=== PATIENT | female | born 1965 | race Hispanic/Latino ===

== ENCOUNTER 2025-01-09 09:13 | Inpatient (IN) | payer OTHER ==
[~2025-01-09] VITALS: Ht 170.2 cm; Wt 91.5 kg
[2025-01-09 09:47] LABS: BASOPHILS # (AUTO) 0.03 K/uL (0.00-0.20); BASOPHILS % (AUTO) 0.3 % (0.0-5.0); HEMATOCRIT 38.3 % (36-48); IMMATURE GRANULOCYTE ABSOLUTE 0.09 K/uL (0-1); LYMPHOCYTES # (AUTO) 0.8 K/uL (1.0-4.8); MEAN CORPUSCULAR HEMOGLOBIN 29.4 pg (27.0-33.0); MEAN CORPUSCULAR HGB CONC 33.4 g/dL (32.0-36.0); MONOCYTES # (AUTO) 0.6 K/uL (0.1-1.0); NEUTROPHILS # (AUTO) 7.7 K/uL (1.8-7.7); NEUTROPHILS % (AUTO) 83.7 % (40.0-77.0); PLATELET COUNT (AUTO) 296 K/uL (130-400); RED BLOOD CELL COUNT(AUTO) 4.35 MIL/uL (4.00-5.50); WHITE BLOOD COUNT (AUTO) 9.1 K/uL (4.8-10.8)
[2025-01-09 10:00] VITALS: PULSE 107; RESP 20
[2025-01-09 10:05] LABS: POTASSIUM 3.7 mmol/L (3.5-5.1)
[2025-01-09 10:08] LABS: ABG HCO3 17.2 mmol/L (21.0-28.0); ABG OXYGEN SATURATION 93.8 % (94.0-98.0); ABG PCO2 21 mmHg (32-45); PO2, ARTERIAL BG 59.1 mmHg (83.0-108.0); VENT MODE, BG RA (ROOM AIR)
[2025-01-09 10:10] LABS: COVID19 (SARS ANTIGEN RAPID) PRESUMPTIVE NEGATIVE (NEGATIVE); INFLUENZA TYPE A Negative For Type A (NEGATIVE); INFLUENZA TYPE B Negative For Type B (NEGATIVE)
[2025-01-09 10:16] LABS: B-TYPE NATRIURETIC PEPTIDE 40 pg/mL (0-100)
[2025-01-09] MEDS: IpraTROPium/alBUTERol SULFATE 3 ML SOLUTION IH ONE (10:36)
--- NOTE | 2025-01-09 10:56 | ERN ---
General Chief Complaint: Flu Symptoms Stated Complaint: FLU LIKE SYMPTOMS Time Seen by MD: 09:14 History of Present Illness Initial Comments 59-year-old female brought in by EMS from her work for dyspnea. Patient reports he was had cough and congestion over the last few days. She went to her PCP was diagnosed with a pneumonia. She has been taking amoxicillin, prednisone, and an inhaler. She reports that today she feels like she can not breathe. She was tachycardic with a heart rate in the 110's. Her oxygen saturation he was 91% on room air per EMS, currently on 2 L nasal cannula. Allergies: Coded Allergies: No Known Drug Allergies (Unverified Allergy, Unknown, 01/09/25) Past Medical History Past Medical History: Diabetes-Type II, HIV, Hypertension Past Surgical History: Appendectomy ROS Dictation CONSTITUTIONAL: fatigue HEAD/FACE: No signs of trauma. EENT: No eye pain, no blurred vision, no tearing, no double vision, no ear pain, no ear discharge, no nose pain, no nasal congestion, no throat pain, no throat swelling, no mouth pain. RESPIRATORY: dyspnea & cough CARDIOVASCULAR: No chest pain, no edema, no palpitations, no syncope. GASTROINTESTINAL/ABDOMINAL: No abdominal pain, no constipation, no diarrhea, no nausea, no vomiting. GENITOURINARY: No abnormal discharge, no dysuria, no frequent urination, no hematuria. No complaints of pain in the genitals. MUSCULOSKELETAL: No back pain, no gout, no joint pain, no joint swelling, no muscle pain, no muscle stiffness, no neck pain. INTEGUMENTARY: No change in color, no change in hair/nails, no dryness, no lesion, no lumps, no rash. NEUROLOGICAL/PSYCH: No anxiety, not depressed, no emotional problem, no heada alma, no numbness, no pre-existing deficit, no history of seizures, no tremors, no weakness. HEMATOLOGIC/LYMPHATIC: Not anemic, no history of blood clots, no apparent bleeding, no bruising, glands not swollen. All Systems Negative, Except as Noted. Physical Exam Physical Exam Dictation VITAL SIGNS: Reviewed. GENERAL APPEARANCE: Alert, oriented x3, moderate resp distress HEAD AND FACE: Non-traumatic. EYES: PERRL, pink conjunctivas, eyelid no trauma, anterior chamber clear. EARS: Pinnas intact and no signs of trauma or erythema. Ear canals clear and no discharge. TMs no erythema. NOSE: No discharge, no bleeding. OROPHARYNX: Mouth normal, teeth no caries, tongue pink. Pharynx clear, no erythema. Tonsils no exudates, no abscesses noted. Mucous membrane moist. NECK: Supple, non-tender, no thyromegaly, no masses, no JVD, no bruits. BREAST: Deferred. CHEST: No tenderness, no crepitus, no paradoxical movement, no retractions. LUNGS: Clear, well-ventilated, symmetric, no rales, no wheezing, no rhonchi, no stridor, good breath sounds bilaterally. HEART: Regular rate, regular rhythm, no murmur, no gallops. VASCULAR: No peripheral edema. ABDOMEN: Soft, positive bowel sounds, nondistended, no guarding, nontender, no rebound, no masses no hepatomegaly, no splenomegaly, no Meng's sign, no hernias. RECTAL: Deferred. GENITAL: Deferred. NEUROLOGICAL: Normal speech, gross motor function intact, gross sensory function intact. MUSCULOSKELETAL: Neck nontender, full range of motion, back nontender, full range of motion. EXTREMITIES: Nontender, full range of motion. SKIN: Color pink, dry, no turgor, no rash, no lacerations, no abrasions, no contusions. LYMPHATICS: Deferred. Results Laboratory and Microbiology Lab and Micro Result Laboratory Tests Test 01/09/25 09:31 01/09/25 10:07 01/09/25 12:59 White Blood Count 9.1 K/uL (4.8-10.8) Red Blood Count 4.35 MIL/uL (4.00-5.50) Hemoglobin 12.8 g/dL (12.0-16.0) Hematocrit 38.3 % (36-48) Mean Corpuscular Volume 88.0 fL (79-99) Mean Corpuscular Hemoglobin 29.4 pg (27.0-33.0) Mean Corpuscular Hemoglobin Concent 33.4 g/dL (32.0-36.0) Red Cell Distribution Width 13.0 % (11.0-15.5) Platelet Count 296 K/uL (130-400) Mean Platelet Volume 10.6 fL (7.5-10.5) H Immature Granulocyte % (Auto) 1.0 % (0-1) Neutrophils (%) (Auto) 83.7 % (40.0-77.0) H Lymphocytes (%) (Auto) 9.0 % (21.0-51.0) L Monocytes (%) (Auto) 6.0 % (3.0-13.0) Eosinophils (%) (Auto) 0.0 % (0.0-8.0) Basophils (%) (Auto) 0.3 % (0.0-5.0) Neutrophils # (Auto) 7.7 K/uL (1.8-7.7) Lymphocytes # (Auto) 0.8 K/uL (1.0-4.8) L Monocytes # (Auto) 0.6 K/uL (0.1-1.0) Eosinophils # (Auto) 0.00 K/uL (0.00-0.70) Basophils # (Auto) 0.03 K/uL (0.00-0.20) Absolute Immature Granulocyte (auto 0.09 K/uL (0-1) Nucleated Red Blood Cells 0.0 % (0.0-0.19) White Cell Morphology Comment See comments D-Dimer Quantitative (PE/DVT) 598 ng/mL (0-500) *H Sodium Level 137 mmol/L (136-145) Potassium Level 3.7 mmol/L (3.5-5.1) Chloride Level 104 mmol/L (101-111) Carbon Dioxide Level 24 mmol/L (21-32) Blood Urea Nitrogen 15 mg/dL (7-18) Creatinine 1.0 mg/dL (0.5-1.0) Glomerular Filtration Rate Calc 65 mL/min (>90) Random Glucose 141 mg/dL (70-105) H Lactic Acid Level 4.8 mmol/L (0.8-2.5) H 3.5 mmol/L (0.8-2.5) H Total Calcium 9.3 mg/dL (8.5-10.1) Total Creatine Kinase 77 U/L (21-232) Troponin I High Sensitivity 21.9 ng/L (4-50) B-Type Natriuretic Peptide 40 pg/mL (0-100) Procalcitonin 0.12 ng/mL (0.05-0.5) Influenza Type A Antigen Negative For Type A Influenza Type B Antigen Negative For Type B SARS-CoV-2 Antigen (Rapid) PRESUMPTIVE NEGATIVE Blood Gas Specimen Type Arterial Arterial Blood pH 7.530 (7.350-7.450) Arterial Blood Partial Pressure CO2 21 mmHg (32-45) L Arterial Blood Partial Pressure O2 59.1 mmHg (83.0-108.0) L Arterial Blood HCO3 17.2 mmol/L (21.0-28.0) L Arterial Blood Oxygen Saturation 93.8 % (94.0-98.0) L Arterial Blood Base Excess -3.0 mmol/L (-2.0-3.0) L Blood Gas Temperature 37.0 CELSIUS (35.5-37.0) Blood Gas Vent Mode RA (ROOM AIR) FiO2 21.0 % Blood Gas Specimen Comment AZALIA ISLAS MD [facility] CC: dyspnea, cough Historian: patient Comorbidities: HTN, DM, HIV Limitations by social determinates of health: none Ddx: PNA, bronchitis, viral illness, PE, ACS, etc. Vital signs: Tachycardia heart rate 115, respiratory rate 24, no temp, oxygen saturation 91% on room air. Labs ( independently interpreted by me): No leukocytosis, left shift 83% neutrophils. No bands. ABG shows a PaO2 of 59 otherwise unremarkable. Chemistry panel is unremarkable. The lactic acid is elevated 4.8, it improved 3.5 with IV fluids. Troponin stable. BNP normal procalcitonin normal. CXR (independently interpreted by me ): No cardiomegaly or focal infiltrates. CTA (independently interpreted by me ): Viral belle appear relatively clear possibly some abnormalities in the left lower base, no obvious pulmonary embolism. Treatment in ED: 1 L lactated Ringer's, DuoNeb, Toradol, morphine, Rocephin, azithromycin, methylprednisolone. Oxygen has a cannula. Re-evaluation: Vital signs stable other than mild tachycardia We will admit for respiratory failure with hypoxia, Likely a bronchitis or reactive airway. ED Course Orders Procedure Category Date Status Time Arterial Blood Gas RT 01/09/25 Transmitted 09:22 Cbc With Differential LAB 01/09/25 Complete 09:22 B-Type Natriuretic LAB 01/09/25 Complete Peptide 09:22 Cardiac Panel LAB 01/09/25 Complete 09:22 Chest 1vw RAD 01/09/25 Resulted 09:22 12 Lead Ekg Tracing- EKG 01/09/25 Complete Technical 09:22 Lactated Ringers PHA 01/09/25 In Process 1000ml (Lactated 09:30 Ipratropium/Albuterol PHA 01/09/25 Complete Neb (Duoneb) 09:30 Basic Metabolic Panel LAB 01/09/25 Complete 09:22 Covid19 (Sars Antigen LAB 01/09/25 Complete Rapid) 09:22 Influenza Type A & B, LAB 01/09/25 Complete Rapid 09:22 D-Dimer LAB 01/09/25 Complete 09:22 Lactic Acid LAB 01/09/25 Complete 09:22 Blood Cult OWEN 01/09/25 In Process 09:22 Procalcitonin LAB 01/09/25 Complete 09:22 Arterial Blood Gas LAB 01/09/25 Complete 10:07 Ketorolac PHA 01/09/25 Complete Tromethamine 15mg/Ml 11:00 Morphine 4mg Syg PHA 01/09/25 Complete (Morphine 4mg Syg) 11:00 Ceftriaxone 1g Vial PHA 01/09/25 Complete (Rocephine 1g Inj) 11:00 Azithromycin 500mg+Ns PHA 01/09/25 In Process 250ml (Azithromyci 11:00 Oxygen By Nc/Pulse Ox CPOE 01/09/25 Transmitted 11:03 Methylprednisolone PHA 01/09/25 Complete Succ 40mg (Solu-Medro 11:30 Ct Chest Pe Protocol CT 01/09/25 Taken Wwo Cont 11:37 Iohexol (Omnipaque) PHA 01/09/25 Complete 12:25 Lactic Acid (Removed) LAB 01/09/25 Complete 12:49 Current Medications Medications (Trade) Dose Ordered Sig/Johnie Route PRN Reason Start Time Stop Time Status Last Admin Dose Admin Albuterol (DUOneb) 1 udvial ONCE ONCE IH 01/09/25 09:30 01/09/25 09:31 DC 01/09/25 10:36 Azithromycin 250 ml @ 250 mls/hr Q24H IVPB 01/09/25 11:00 01/19/25 10:59 01/09/25 13:10 Ceftriaxone Sodium (ROCEphine 1G INJ) 1 gm ONCE ONCE IVPB 01/09/25 11:00 01/09/25 11:01 DC 01/09/25 11:46 Iohexol (Omnipaque) 75 ml STK-MED ONCE IV 01/09/25 12:25 01/09/25 12:26 DC Ketorolac Tromethamine (toRADol) 15 mg ONCE ONCE IV 01/09/25 11:00 01/09/25 11:01 DC Lactated Ringer's 1,000 ml @ 125 mls/hr ONCE ONCE IV 01/09/25 09:30 01/09/25 17:29 01/09/25 11:45 Methylprednisolone Sodium Succinate (Solu-medROL 40MG) 40 mg ONCE ONCE IVP 01/09/25 11:30 01/09/25 11:31 DC 01/09/25 11:45 Morphine Sulfate (morPHINE 4MG SYG) 4 mg ONCE ONCE IVP 01/09/25 11:00 01/09/25 11:01 DC 01/09/25 11:46 Vital Signs Date Time Temp Pulse Resp B/P (MAP) Pulse Ox O2 Delivery O2 Flow Rate FiO2 01/09/25 11:50 98.4 109 20 121/72 94 Nasal Cannula* 2 28 01/09/25 10:00 107 20 01/09/25 09:30 98.4 115 22 136/79 91 Room Air* 0 21 01/09/25 09:15 98.4 115 22 136/79 91 Room Air 0 DX & DISP Disposition: Inpatient Departure Impression: Primary Impression: Respiratory failure with hypoxia Additional Impressions: Wheezy bronchitis, Lactic acid acidosis Critical Time: 30 minutes (Critical Care Procedure NoteAuthorized and Performed by: meTotal critical care time: Approximately 36 minutesDue to a high probability of clinically significant, life threatening deterioration, the patient required my highest level of preparedness to intervene emergently and I personally spent this critical care time directly and personally managing the patient. This critical care time included obtaining a history; examining the patient; pulse oximetry; ordering and review of studies; arranging urgent treatment with development of a management plan; evaluation of patient's response to treatment; frequent reassessment; and, discussions with other providers.This critical care time was performed to assess and manage the high probability of imminent, life-threatening deterioration that could result in multi-organ failure. It was exclusive of separately billable procedures and treating other patients and teaching time.Please see MDM section and the rest of the note for further information on patient assessment and treatment.) Condition: Stable Referrals: SELF,REFERRAL (PCP) DAYRON ISLAS DO Jan 09, 2025 10:56
[2025-01-09] MEDS: ketOROlac 15MG/ML VIAL (15MG/ML) IV ONE (11:00)
--- NOTE | 2025-01-09 11:00 | NUR ---
PT DECLINED TORADOL MORPHINE HELPED HER WITH HER PAIN.
[2025-01-09] MEDS: LACTATED RINGERS 1000ML 1,000 ML IV ONE (11:45)
[2025-01-09] MEDS: Solu-medROL 40MG VIAL IVP ONE (11:45)
[2025-01-09] MEDS: morPHINE 4 MG SYG IVP ONE (11:46)
[2025-01-09] MEDS: cefTRIAXone 1G VIAL IVPB ONE (11:46)
--- NOTE | 2025-01-09 12:01 | EKG ---
[facility] Test Date: 2025-01-09 Test Time: 09:42:12 Pat Name: MARICRUZ CATALAN Department: ED Room: 430 Gender: F Save All Operator: [id number] : 1965 Requested By: DAYRON ISLAS Order Number: [id number] Reading MD: Brenda Monroe Measurements Intervals [place] Rate: 106 P: 66 RI: 165 QRS: -7 QRSD: 80 T: 67 QT: 351 QTc: 466 Interpretive Statements Sinus tachycardia No previous ECG available for comparison Electronically Signed On 01-14-2025 12:43:44 CDT by Brenda Monroe Please click the below link to view image of tracing.
[2025-01-09] MEDS ORDERED: IOHEXOL-350 75 ML VIAL IV ONE (12:25)
[2025-01-09] MEDS: AZITHROMYCIN 500MG+NS 250ML 250 ML IVPB SCH (13:10)
--- NOTE | 2025-01-09 13:25 | HMCIMG ---
CHEST 1VW HISTORY: Dyspnea COMPARISON: None FINDINGS: A frontal projection of the chest was obtained. No acute pulmonary infiltrates is seen. The heart is borderline enlarged. Degenerative changes are seen. Prominent interstitial markings are seen. IMPRESSION: 1. No acute pulmonary infiltrate is seen.
--- NOTE | 2025-01-09 13:43 | HMCIMG ---
CT CHEST PE PROTOCOL WWO CONT HISTORY: Elevated d-dimer COMPARISON: None TECHNIQUE: CT angiography of the chest was performed. The study was performed using angiographic technique with maximum intensity projection reconstruction images. Patient was given 75 cc of Omnipaque through intravenous route. FINDINGS: No CT evidence of filling defect is seen to suggest pulmonary embolus. No CT evidence of aortic dissection is seen. Minimal left lower lung pulmonary infiltrates are seen. There are interstitial fibrosis. No evidence of parenchymal disease is seen. No CT evidence of pleural effusion or pericardial effusion is seen. The heart is enlarged. Fatty changes of the liver are noted. No evidence of adrenal mass is seen. Degenerative changes of the spine are noted. IMPRESSION: 1. Minimal left lower lung pulmonary infiltrates. No CT evidence of pulmonary embolus is seen. CT was performed with one or more following dose reduction techniques: automated exposure control, adjustment of the mA and kv according to patient's size, or use of a iterative reconstruction technique.
[2025-01-09] MEDS ORDERED: cefTRIAXone 1G VIAL IVPB SCH (14:30)
[2025-01-09] MEDS ORDERED: AZITHROMYCIN 500MG+NS 250ML 250 ML IVPB SCH (14:30)
[2025-01-09] MEDS ORDERED: FAMO40TA7 PO (14:45)
[2025-01-09] MEDS ORDERED: METF-444 PO (14:45)
--- NOTE | 2025-01-09 14:46 | HP ---
HISTORY AND PHYSICAL NOTE DATE OF CONSULTATION: 01/09/25 REASON FOR CONSULTATION: Shortness of breath HISTORY OF PRESENT ILLNESS: 59-year-old female brought in by EMS from her work for dyspnea. Patient reports he was had cough and congestion over the last few days. She went to her PCP was diagnosed with a pneumonia. She has been taking amoxicillin, prednisone, and an inhaler. She reports that today she feels like she can not breathe. She was tachycardic with a heart rate in the 110's. Her oxygen saturation he was 91% on room air per EMS, currently on 2 L nasal cannula. Allergies: Coded Allergies: No Known Drug Allergies (Unverified Allergy, Unknown, 01/09/25) Past Medical History Past Medical History: Diabetes-Type II, HIV, Hypertension Past Surgical History: Appendectomy ROS Dictation CONSTITUTIONAL: fatigue HEAD/FACE: No signs of trauma. EENT: No eye pain, no blurred vision, no tearing, no double vision, no ear p ain, no ear discharge, no nose pain, no nasal congestion, no throat pain, no throat swelling, no mouth pain. RESPIRATORY: dyspnea & cough CARDIOVASCULAR: No chest pain, no edema, no palpitations, no syncope. GASTROINTESTINAL/ABDOMINAL: No abdominal pain, no constipation, no diarrhea, no nausea, no vomiting. GENITOURINARY: No abnormal discharge, no dysuria, no frequent urination, no hematuria. No complaints of pain in the genitals. MUSCULOSKELETAL: No back pain, no gout, no joint pain, no joint swelling, no muscle pain, no muscle stiffness, no neck pain. INTEGUMENTARY: No change in color, no change in hair/nails, no dryness, no lesion, no lumps, no rash. NEUROLOGICAL/PSYCH: No anxiety, not depressed, no emotional problem, no headache, no numbness, no pre-existing deficit, no history of seizures, no tremors, no weakness. HEMATOLOGIC/LYMPHATIC: Not anemic, no history of blood clots, no apparent bleeding, no bruising, glands not swollen. All Systems Negative, Except as Noted. . ALLERGIES: Coded Allergies: No Known Drug Allergies (Unverified Allergy, Unknown, 01/09/25) HOME MEDS: Reported Medications Metformin HCl (Metformin HCl) 500 Mg Tablet, 1 TAB PO DAILY for 30 Days, #60 TAB 0 Refills 01/09/25 Famotidine (Famotidine) 40 Mg Tablet, 1 TAB PO DAILY for 30 Days, #30 TAB 0 Refills 01/09/25 INPATIENT MEDS: Current Medications Medications Dose Ordered Sig/Johnie Start Time Stop Time Status Last Admin Lactated Ringer's 1,000 ml @ 125 mls/hr ONCE ONCE 01/09/25 09:30 01/09/25 17:29 01/09/25 11:45 Albuterol 1 UDVIAL [id number] PRN 01/09/25 14:30 02/08/25 14:29 Enoxaparin Sodium 40 mg DAILY 01/10/25 09:00 02/09/25 08:59 Insulin Human Regular INSULIN SLIDING SCAL... ACHS 01/09/25 16:30 02/08/25 16:29 VITAL SIGNS Vital Signs Date Time Temp Pulse Resp B/P (MAP) Pulse Ox O2 Delivery O2 Flow Rate FiO2 01/09/25 11:50 98.4 109 20 121/72 94 Nasal Cannula* 2 28 01/09/25 10:00 107 20 01/09/25 09:30 98.4 115 22 136/79 91 Room Air* 0 21 01/09/25 09:15 98.4 115 22 136/79 91 Room Air 0 PHYSICAL EXAM Physical Exam Physical Exam Dictation VITAL SIGNS: Reviewed. GENERAL APPEARANCE: Alert, oriented x3, moderate resp distress HEAD AND FACE: Non-traumatic. EYES: PERRL, pink conjunctivas, eyelid no trauma, anterior chamber clear. EARS: Pinnas intact and no signs of trauma or erythema. Ear canals clear and no discharge. TMs no erythema. NOSE: No discharge, no bleeding. OROPHARYNX: Mouth normal, teeth no caries, tongue pink. Pharynx clear, no erythema. Tonsils no exudates, no abscesses noted. Mucous membrane moist. NECK: Supple, non-tender, no thyromegaly, no masses, no JVD, no bruits. BREAST: Deferred. CHEST: No tenderness, no crepitus, no paradoxical movement, no retractions. LUNGS: Clear, well-ventilated, symmetric, no rales, no wheezing, no rhonchi, no stridor, good breath sounds bilaterally. HEART: Regular rate, regular rhythm, no murmur, no gallops. VASCULAR: No peripheral edema. ABDOMEN: Soft, positive bowel sounds, nondistended, no guarding, nontender, no rebound, no masses no hepatomegaly, no splenomegaly, no Meng's sign, no hernias. RECTAL: Deferred. GENITAL: Deferred. NEUROLOGICAL: Normal speech, gross motor function intact, gross sensory function intact. MUSCULOSKELETAL: Neck nontender, full range of motion, back nontender, full range of motion. EXTREMITIES: Nontender, full range of motion. SKIN: Color pink, dry, no turgor, no rash, no lacerations, no abrasions, no contusions. LYMPHATICS: Deferred LABORATORY RESULTS Laboratory Tests 01/09/25 09:31: White Blood Count 9.1, Red Blood Count 4.35, Hemoglobin 12.8, Hematocrit 38.3, Mean Corpuscular Volume 88.0, Mean Corpuscular Hemoglobin 29.4, Mean Corpuscular Hemoglobin Concent 33.4, Red Cell Distribution Width 13.0, Platelet Count 296, Mean Platelet Volume 10.6, Immature Granulocyte % (Auto) 1.0, Neutrophils (%) (Auto) 83.7, Lymphocytes (%) (Auto) 9.0, Monocytes (%) (Auto) 6.0, Eosinophils (%) (Auto) 0.0, Basophils (%) (Auto) 0.3, Neutrophils # (Auto) 7.7, Lymphocytes # (Auto) 0.8, Monocytes # (Auto) 0.6, Eosinophils # (Auto) 0.00, Basophils # (Auto) 0.03, Absolute Immature Granulocyte (auto 0.09, Nucleated Red Blood Cells 0.0, White Cell Morphology Comment See comments, D-Dimer Quantitative (PE/DVT) 598, Sodium Level 137, Potassium Level 3.7, Chloride Level 104, Carbon Dioxide Level 24, Blood Urea Nitrogen 15, Creatinine 1.0, Glomerular Filtration Rate Calc 65, Random Glucose 141, Lactic Acid Level 4.8, Total Calcium 9.3, Total Creatine Kinase 77, Troponin I High Sensitivity 21.9, B-Type Natriuretic Peptide 40, Procalcitonin 0.12, Influenza Type A Antigen Negative For Type A, Influenza Type B Antigen Negative For Type B, SARS-CoV-2 Antigen (Rapid) PRESUMPTIVE NEGATIVE 01/09/25 10:07: Blood Gas Specimen Type Arterial, Arterial Blood pH 7.530, Arterial Blood Partial Pressure CO2 21, Arterial Blood Partial Pressure O2 59.1, Arterial Blood HCO3 17.2, Arterial Blood Oxygen Saturation 93.8, Arterial Blood Base Excess - 3.0, Blood Gas Temperature 37.0, Blood Gas Vent Mode RA, FiO2 21.0, Blood Gas Specimen Comment AZALIA ISLAS MD 01/09/25 12:59: Lactic Acid Level 3.5 PROBLEM LIST: (1) Pneumonia ICD Codes: J18.9 - Pneumonia, unspecified organism (2) Lactic acid acidosis ICD Codes: E87.20 - Acidosis, unspecified (3) Wheezy bronchitis ICD Codes: J40 - Bronchitis, not specified as acute or chronic (4) Respiratory failure with hypoxia ICD Codes: J96.91 - Respiratory failure, unspecified with hypoxia PLAN IV antibiotics bronchodilators DVT prophylaxis and follow-through BINU HOOPER MD Jan 09, 2025 14:46
[2025-01-09] MEDS ORDERED: LEVO100T12 PO (15:11)
[2025-01-09] MEDS ORDERED: IBUP-2077 PO (15:11)
[2025-01-09] MEDS ORDERED: GABA300C PO (15:11)
[2025-01-09] MEDS ORDERED: LOSA25TA41 PO (15:11)
[2025-01-09] MEDS ORDERED: ROSU10TA72 PO (15:11)
[2025-01-09] MEDS ORDERED: PRED20TA3 PO (15:11)
[2025-01-09] MEDS ORDERED: AMOX500C2 PO (15:11)
[2025-01-09] MEDS ORDERED: BACL10TA PO (15:11)
[2025-01-09] MEDS ORDERED: HYDR12.54 PO (15:11)
--- NOTE | 2025-01-09 15:11 | NUR ---
MEDICATIONS RECONCILED
[2025-01-09 15:30] VITALS: PULSE 111; RESP 22; O2SAT 94
[2025-01-09] MEDS: INSULIN humuLIN R 100 UNIT/ML 3ML SQ SCH (16:30)
--- NOTE | 2025-01-09 19:31 | NUR ---
TOOK OVER PATIENT AT THIS TIME
[2025-01-09 22:55] VITALS: PULSE 102; RESP 21; O2SAT 96
[2025-01-10] VITALS (12 sets, daily range): BP systolic 104–122; BP diastolic 60–82; PULSE 63–78; RESP 18–20; TEMP 97.6–98.7; O2SAT 93–98
[2025-01-10] MEDS ORDERED: JULUCA PO (01:21)
[2025-01-10 06:43] LABS: BASOPHILS # (AUTO) 0.04 K/uL (0.00-0.20); BASOPHILS % (AUTO) 0.5 % (0.0-5.0); EOSINOPHILS # (AUTO) 0.02 K/uL (0.00-0.70); EOSINOPHILS % (AUTO) 0.2 % (0.0-8.0); HEMATOCRIT 32.4 % (36-48); IMMATURE GRANULOCYTE ABSOLUTE 0.03 K/uL (0-1); LYMPHOCYTES # (AUTO) 2.2 K/uL (1.0-4.8); LYMPHOCYTES % (AUTO) 25.3 % (21.0-51.0); MEAN CORPUSCULAR HEMOGLOBIN 28.7 pg (27.0-33.0); MEAN CORPUSCULAR HGB CONC 32.7 g/dL (32.0-36.0); MEAN CORPUSCULAR VOLUME 87.8 fL (79-99); MONOCYTES # (AUTO) 0.9 K/uL (0.1-1.0); MONOCYTES % (AUTO) 10.6 % (3.0-13.0); NEUTROPHILS # (AUTO) 5.5 K/uL (1.8-7.7); NEUTROPHILS % (AUTO) 63.1 % (40.0-77.0); PLATELET COUNT (AUTO) 258 K/uL (130-400); RED BLOOD CELL COUNT(AUTO) 3.69 MIL/uL (4.00-5.50); RED CELL DISTRIBUTION WIDTH 13.3 % (11.0-15.5); WHITE BLOOD COUNT (AUTO) 8.8 K/uL (4.8-10.8)
[2025-01-10 07:10] LABS: BILIRUBIN,TOTAL 0.4 mg/dL (0.2-1.0); POTASSIUM 3.8 mmol/L (3.5-5.1); TOTAL PROTEIN, SERUM 6.5 g/dL (6.0-8.3)
[2025-01-10] MEDS: Solu-medROL 40MG VIAL IVP SCH (10:26)
[2025-01-10] MEDS: ENOXAPARIN SODIUM 40 MG/0.4 ML SYRINGE SQ SCH (10:27)
[2025-01-10] MEDS: JULUCA PO SCH (12:00)
--- NOTE | 2025-01-10 12:28 | NUR ---
DCP Patient states lives with Rodolfo Kent, Spouse [phone] in an upstairs apartment with a tub. 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 States able to complete ADL's on her own. Denies medical devices. Denies home health services, home care provider or dialysis. [facility] upon discharge, states Rodolfo Kent, Spouse [phone] and assist with care, as needed. At this time, patient states she does not foresee additional medical needs. Addendum: 01/10/25 at 1232 by COREY HAMPTON RN CM Amended: Links added.
--- NOTE | 2025-01-10 14:30 | NUR ---
SPEECH TRIGGER COMPLETED. Pt IS A 59 Y.O. FEMALE ADMITTED SECONDARY TO PNA. Pt HAS A PAST MEDICAL HISTORY SIGNIFICANT FOR HYPERTENSION, HIV AND DM TYPE II. PATIENT PRESENTED WITH MINIMAL LEFT LOWER LUNG PULMONARY INFILTRATES ON MOST RECENT CHEST X-RAY (01/09/2025). Pt CURRENTLY ON CONSISTENT CARB DIET (REGULAR TEXTURE AND THIN LIQUIDS). PER NURSE LIBRADO, Pt TOLERATING DIET WITH NO OVERT S/S OF ASPIRATION. PLEASE REQUEST SPEECH THERAPY SERVICES FOR SKILLED BEDSIDE SWALLOW EVALUATION IF Pt PRESENTS WITH +S/S OF ASPIRATION SUCH COUGH RESPONSE, THROAT CLEAR, OR WET VOCAL QUALITY DURING ORAL INTAKE. ALL QUESTIONS ANSWERED AT THIS TIME. Addendum: 01/10/[address] SHAREE FRANCES Amended: Links added.
--- NOTE | 2025-01-10 14:57 | NUR ---
PATIENT REPORTS FEELING CLAMMY Blood glucose = 137; Temperature = 97.8; BP = 104/60; P= 71; O2 = 95% on 2 L nasal cannula
[2025-01-10] MEDS: IpraTROPium/alBUTERol SULFATE 3 ML SOLUTION IH PRN (18:43)
--- NOTE | 2025-01-10 22:26 | PN ---
PROGRESS NOTE PROGRESS NOTE DATE OF PROGRESS NOTE: 01/10/25 SUBJECTIVE: no new complaints VITAL SIGNS Vital Signs Date Time Temp Pulse Resp B/P (MAP) Pulse Ox O2 Delivery O2 Flow Rate FiO2 01/10/25 20:00 97.5 78 18 111/63 93 Nasal Cannula 2.0 01/10/25 18:45 28 PHYSICAL EXAM: Physical Exam Physical Exam Dictation VITAL SIGNS: Reviewed. GENERAL APPEARANCE: Alert, oriented x3, moderate resp distress HEAD AND FACE: Non-traumatic. EYES: PERRL, pink conjunctivas, eyelid no trauma, anterior chamber clear. EARS: Pinnas intact and no signs of trauma or erythema. Ear canals clear and no discharge. TMs no erythema. NOSE: No discharge, no bleeding. OROPHARYNX: Mouth normal, teeth no caries, tongue pink. Pharynx clear, no erythema. Tonsils no exudates, no abscesses noted. Mucous membrane moist. NECK: Supple, non-tender, no thyromegaly, no masses, no JVD, no bruits. BREAST: Deferred. CHEST: No tenderness, no crepitus, no paradoxical movement, no retractions. LUNGS: Clear, well-ventilated, symmetric, no rales, no wheezing, no rhonchi, no stridor, good breath sounds bilaterally. HEART: Regular rate, regular rhythm, no murmur, no gallops. VASCULAR: No peripheral edema. ABDOMEN: Soft, positive bowel sounds, nondistended, no guarding, nontender, no rebound, no masses no hepatomegaly, no splenomegaly, no Meng's sign, no hernias. RECTAL: Deferred. GENITAL: Deferred. NEUROLOGICAL: Normal speech, gross motor function intact, gross sensory function intact. MUSCULOSKELETAL: Neck nontender, full range of motion, back nontender, full range of motion. EXTREMITIES: Nontender, full range of motion. SKIN: Color pink, dry, no turgor, no rash, no lacerations, no abrasions, no contusions. LYMPHATICS: Deferred LABORATORY: Laboratory Result(s) Test 01/10/25 05:35 01/10/25 06:33 01/10/25 14:56 01/10/25 19:46 Whole Blood Glucose 114 MG/DL (70-110) 137 MG/DL (70-110) 260 MG/DL (70-110) White Blood Count 8.8 K/uL (4.8-10.8) Red Blood Count 3.69 MIL/uL (4.00-5.50) Hemoglobin 10.6 g/dL (12.0-16.0) Hematocrit 32.4 % (36-48) Mean Corpuscular Volume 87.8 fL (79-99) Mean Corpuscular Hemoglobin 28.7 pg (27.0-33.0) Mean Corpuscular Hemoglobin Concent 32.7 g/dL (32.0-36.0) Red Cell Distribution Width 13.3 % (11.0-15.5) Platelet Count 258 K/uL (130-400) Mean Platelet Volume 10.6 fL (7.5-10.5) Immature Granulocyte % (Auto) 0.3 % (0-1) Neutrophils (%) (Auto) 63.1 % (40.0-77.0) Lymphocytes (%) (Auto) 25.3 % (21.0-51.0) Monocytes (%) (Auto) 10.6 % (3.0-13.0) Eosinophils (%) (Auto) 0.2 % (0.0-8.0) Basophils (%) (Auto) 0.5 % (0.0-5.0) Neutrophils # (Auto) 5.5 K/uL (1.8-7.7) Lymphocytes # (Auto) 2.2 K/uL (1.0-4.8) Monocytes # (Auto) 0.9 K/uL (0.1-1.0) Eosinophils # (Auto) 0.02 K/uL (0.00-0.70) Basophils # (Auto) 0.04 K/uL (0.00-0.20) Absolute Immature Granulocyte (auto 0.03 K/uL (0-1) Nucleated Red Blood Cells 0.0 % (0.0-0.19) Sodium Level 140 mmol/L (136-145) Potassium Level 3.8 mmol/L (3.5-5.1) Chloride Level 107 mmol/L (101-111) Carbon Dioxide Level 29 mmol/L (21-32) Blood Urea Nitrogen 18 mg/dL (7-18) Creatinine 1.0 mg/dL (0.5-1.0) Glomerular Filtration Rate Calc 65 mL/min (>90) Random Glucose 110 mg/dL (70-105) Total Calcium 8.4 mg/dL (8.5-10.1) Total Bilirubin 0.4 mg/dL (0.2-1.0) Aspartate Amino Transf (AST/SGOT) 14 U/L (10-37) Alanine Aminotransferase (ALT/SGPT) 21 U/L (12-78) Alkaline Phosphatase 77 U/L (50-136) Total Protein 6.5 g/dL (6.0-8.3) Albumin 3.0 g/dL (3.5-5.0) INPATIENT MEDS: Current Medications Medications Dose Ordered Sig/Johnie Start Time Stop Time Status Last Admin Albuterol 1 UDVIAL [id number] PRN 01/09/25 14:30 02/08/25 14:29 01/10/25 18:43 Enoxaparin Sodium 40 mg DAILY 01/10/25 09:00 02/09/25 08:59 01/10/25 10:27 Insulin Human Regular INSULIN SLIDING SCAL... ACHS 01/09/25 16:30 02/08/25 16:29 01/10/25 21:13 Home Med JULUCA 50-25 MG DAILY... DAILYLUNCH 01/10/25 12:00 02/09/25 11:59 01/10/25 12:00 Methylprednisolone Sodium Succinate 40 mg BID 01/10/25 09:00 02/09/25 08:59 01/10/25 21:11 PROBLEM LIST: (1) Pneumonia ICD Code: J18.9 - Pneumonia, unspecified organism (2) Lactic acid acidosis ICD Code: E87.20 - Acidosis, unspecified (3) Wheezy bronchitis ICD Code: J40 - Bronchitis, not specified as acute or chronic (4) Respiratory failure with hypoxia ICD Code: J96.91 - Respiratory failure, unspecified with hypoxia PLAN: IV antibiotics bronchodilators DVT prophylaxis and follow-through BINU HOOPER MD Jan 10, 2025 22:26
[2025-01-11] VITALS (11 sets, daily range): BP systolic 105–126; BP diastolic 64–77; PULSE 59–86; RESP 18–20; TEMP 97.3–98.4; O2SAT 95–100
[2025-01-11 05:31] LABS: BASOPHILS # (AUTO) 0.01 K/uL (0.00-0.20); BASOPHILS % (AUTO) 0.1 % (0.0-5.0); HEMATOCRIT 34.5 % (36-48); IMMATURE GRANULOCYTE ABSOLUTE 0.11 K/uL (0-1); LYMPHOCYTES # (AUTO) 1.5 K/uL (1.0-4.8); MEAN CORPUSCULAR HEMOGLOBIN 29.2 pg (27.0-33.0); MEAN CORPUSCULAR VOLUME 88.2 fL (79-99); MONOCYTES # (AUTO) 0.4 K/uL (0.1-1.0); MONOCYTES % (AUTO) 4.1 % (3.0-13.0); NEUTROPHILS # (AUTO) 8.1 K/uL (1.8-7.7); NEUTROPHILS % (AUTO) 79.7 % (40.0-77.0); PLATELET COUNT (AUTO) 268 K/uL (130-400); RED BLOOD CELL COUNT(AUTO) 3.91 MIL/uL (4.00-5.50); RED CELL DISTRIBUTION WIDTH 13.2 % (11.0-15.5); WHITE BLOOD COUNT (AUTO) 10.1 K/uL (4.8-10.8)
[2025-01-11 05:51] LABS: ALBUMIN 3.2 g/dL (3.5-5.0); BILIRUBIN,TOTAL 0.3 mg/dL (0.2-1.0); CREATININE 0.8 mg/dL (0.5-1.0); TOTAL PROTEIN, SERUM 7.1 g/dL (6.0-8.3)
[2025-01-11] MEDS: IpraTROPium/alBUTERol SULFATE 3 ML SOLUTION IH SCH ×2 (09:32→18:06)
[2025-01-11] MEDS ORDERED: cefTRIAXone 1G VIAL IVPB SCH (11:00)
[2025-01-11] MEDS: AZITHROMYCIN 500MG+NS 250ML 250 ML IVPB SCH (12:05)
[2025-01-11] MEDS: Solu-medROL 40MG VIAL IVP SCH (12:28)
--- NOTE | 2025-01-11 14:23 | PN ---
PROGRESS NOTE PROGRESS NOTE DATE OF PROGRESS NOTE: 01/11/25 SUBJECTIVE: No new complaints VITAL SIGNS Vital Signs Date Time Temp Pulse Resp B/P (MAP) Pulse Ox O2 Delivery O2 Flow Rate FiO2 01/11/25 12:00 98.1 69 18 106/65 95 Nasal Cannula 2.0 01/11/25 08:10 28 PHYSICAL EXAM: Physical Exam Physical Exam Dictation VITAL SIGNS: Reviewed. GENERAL APPEARANCE: Alert, oriented x3, moderate resp distress HEAD AND FACE: Non-traumatic. EYES: PERRL, pink conjunctivas, eyelid no trauma, anterior chamber clear. EARS: Pinnas intact and no signs of trauma or erythema. Ear canals clear and no discharge. TMs no erythema. NOSE: No discharge, no bleeding. OROPHARYNX: Mouth normal, teeth no caries, tongue pink. Pharynx clear, no erythema. Tonsils no exudates, no abscesses noted. Mucous membrane moist. NECK: Supple, non-tender, no thyromegaly, no masses, no JVD, no bruits. BREAST: Deferred. CHEST: No tenderness, no crepitus, no paradoxical movement, no retractions. LUNGS: Clear, well-ventilated, symmetric, no rales, no wheezing, no rhonchi, no stridor, good breath sounds bilaterally. HEART: Regular rate, regular rhythm, no murmur, no gallops. VASCULAR: No peripheral edema. ABDOMEN: Soft, positive bowel sounds, nondistended, no guarding, nontender, no rebound, no masses no hepatomegaly, no splenomegaly, no Meng's sign, no hernias. RECTAL: Deferred. GENITAL: Deferred. NEUROLOGICAL: Normal speech, gross motor function intact, gross sensory function intact. MUSCULOSKELETAL: Neck nontender, full range of motion, back nontender, full range of motion. EXTREMITIES: Nontender, full range of motion. SKIN: Color pink, dry, no turgor, no rash, no lacerations, no abrasions, no contusions. LYMPHATICS: Deferred LABORATORY: Laboratory Result(s) Test 01/10/25 14:56 01/10/25 19:46 01/11/25 04:57 01/11/25 05:04 Whole Blood Glucose 137 MG/DL (70-110) 260 MG/DL (70-110) 141 MG/DL (70-110) White Blood Count 10.1 K/uL (4.8-10.8) Red Blood Count 3.91 MIL/uL (4.00-5.50) Hemoglobin 11.4 g/dL (12.0-16.0) Hematocrit 34.5 % (36-48) Mean Corpuscular Volume 88.2 fL (79-99) Mean Corpuscular Hemoglobin 29.2 pg (27.0-33.0) Mean Corpuscular Hemoglobin Concent 33.0 g/dL (32.0-36.0) Red Cell Distribution Width 13.2 % (11.0-15.5) Platelet Count 268 K/uL (130-400) Mean Platelet Volume 10.6 fL (7.5-10.5) Immature Granulocyte % (Auto) 1.1 % (0-1) Neutrophils (%) (Auto) 79.7 % (40.0-77.0) Lymphocytes (%) (Auto) 15.0 % (21.0-51.0) Monocytes (%) (Auto) 4.1 % (3.0-13.0) Eosinophils (%) (Auto) 0.0 % (0.0-8.0) Basophils (%) (Auto) 0.1 % (0.0-5.0) Neutrophils # (Auto) 8.1 K/uL (1.8-7.7) Lymphocytes # (Auto) 1.5 K/uL (1.0-4.8) Monocytes # (Auto) 0.4 K/uL (0.1-1.0) Eosinophils # (Auto) 0.00 K/uL (0.00-0.70) Basophils # (Auto) 0.01 K/uL (0.00-0.20) Absolute Immature Granulocyte (auto 0.11 K/uL (0-1) Nucleated Red Blood Cells 0.0 % (0.0-0.19) Sodium Level 139 mmol/L (136-145) Potassium Level 4.0 mmol/L (3.5-5.1) Chloride Level 106 mmol/L (101-111) Carbon Dioxide Level 24 mmol/L (21-32) Blood Urea Nitrogen 18 mg/dL (7-18) Creatinine 0.8 mg/dL (0.5-1.0) Glomerular Filtration Rate Calc 85 mL/min (>90) Random Glucose 142 mg/dL (70-105) Total Calcium 8.7 mg/dL (8.5-10.1) Total Bilirubin 0.3 mg/dL (0.2-1.0) Aspartate Amino Transf (AST/SGOT) 13 U/L (10-37) Alanine Aminotransferase (ALT/SGPT) 20 U/L (12-78) Alkaline Phosphatase 85 U/L (50-136) Total Protein 7.1 g/dL (6.0-8.3) Albumin 3.2 g/dL (3.5-5.0) Test 01/11/25 10:59 Whole Blood Glucose 128 MG/DL (70-110) INPATIENT MEDS: Current Medications Medications Dose Ordered Sig/Johnie Start Time Stop Time Status Last Admin Enoxaparin Sodium 40 mg DAILY 01/10/25 09:00 02/09/25 08:59 01/11/25 12:08 Insulin Human Regular INSULIN SLIDING SCAL... ACHS 01/09/25 16:30 02/08/25 16:29 01/10/25 21:13 Home Med JULUCA 50-25 MG DAILY... DAILYLUNCH 01/10/25 12:00 02/09/25 11:59 01/10/25 12:00 Azithromycin 250 ml @ 250 mls/hr Q24H 01/11/25 09:00 01/21/25 08:59 01/11/25 12:40 Albuterol 1 UDVIAL [id number] 01/11/25 18:00 02/08/25 14:29 Methylprednisolone Sodium Succinate 80 mg BID 01/11/25 12:00 02/10/25 11:59 01/11/25 12:28 Ceftriaxone Sodium 1 gm Q24H 01/11/25 15:00 01/21/25 14:59 PROBLEM LIST: (1) Pneumonia ICD Code: J18.9 - Pneumonia, unspecified organism (2) Lactic acid acidosis ICD Code: E87.20 - Acidosis, unspecified (3) Wheezy bronchitis ICD Code: J40 - Bronchitis, not specified as acute or chronic (4) Respiratory failure with hypoxia ICD Code: J96.91 - Respiratory failure, unspecified with hypoxia PLAN: IV antibiotics bronchodilators DVT prophylaxis and follow-through BINU HOOPER MD Jan 11, 2025 14:23
[2025-01-11] MEDS: cefTRIAXone 1G VIAL IVPB SCH (16:13)
[2025-01-12] VITALS (11 sets, daily range): BP systolic 113–123; BP diastolic 62–80; PULSE 72–87; RESP 18–20; TEMP 97.6–98.3; O2SAT 89–96
[2025-01-12] MEDS: Solu-medROL 40MG VIAL IVP SCH (08:37)
[2025-01-12] MEDS: guaiFENesin-DM 200/20MG 10ML PO PRN (13:55)
--- NOTE | 2025-01-12 21:17 | PN ---
SUBJECTIVE: The patient has some shortness of breath and coughing. The patient's Solu-Medrol is changed to 40 mg 3 times a day. OBJECTIVE: VITAL SIGNS: Blood pressure is 120/60, pulse is 80, respirations are 18. LUNGS: Mostly decreased breath sounds, rhonchi noted over the lung belle. HEART: Regular rate and rhythm. ABDOMEN: Soft, nontender. ASSESSMENT AND PLAN: Diagnosed with pneumonia and bronchitis and recent respiratory failure with hypoxia, which appears to be improving. The patient is on nasal cannula. The patient is going to be ambulated in the floor with assistance. The patient's . Continue with antibiotics and nebulized treatments. TID: [id number] RECEIPT: [id number]
[2025-01-13] VITALS (12 sets, daily range): BP systolic 115–136; BP diastolic 71–83; PULSE 69–89; RESP 18–20; TEMP 97.8–98.6; O2SAT 94–95
[2025-01-13 04:24] LABS: HEMATOCRIT 34.6 % (36-48); MEAN CORPUSCULAR HEMOGLOBIN 28.9 pg (27.0-33.0); MEAN CORPUSCULAR HGB CONC 32.4 g/dL (32.0-36.0); MEAN CORPUSCULAR VOLUME 89.2 fL (79-99); RED BLOOD CELL COUNT(AUTO) 3.88 MIL/uL (4.00-5.50); RED CELL DISTRIBUTION WIDTH 13.1 % (11.0-15.5); WHITE BLOOD COUNT (AUTO) 14.5 K/uL (4.8-10.8)
[2025-01-13 04:46] LABS: ALBUMIN 3.2 g/dL (3.5-5.0); BILIRUBIN,TOTAL 0.2 mg/dL (0.2-1.0); MAGNESIUM 2.2 mg/dL (1.80-2.40); POTASSIUM 4.3 mmol/L (3.5-5.1)
[2025-01-13] MEDS: predniSONE 20 MG TABLET PO SCH (08:56)
[2025-01-14] VITALS (12 sets, daily range): BP systolic 113–131; BP diastolic 65–84; PULSE 63–76; RESP 18–20; TEMP 97.8–98.6; O2SAT 93–100
--- NOTE | 2025-01-14 06:02 | PN ---
SUBJECTIVE: The patient is feeling better. The patient on IV Solu-Medrol, is improving, which will be switched to p.o. prednisone. The patient wants to change the antibiotics to p.o. also. OBJECTIVE: VITAL SIGNS: Blood pressure is 120/60, pulse 60, respirations are 18. LUNGS: Mostly decreased breath sounds. No wheeze or rhonchi. HEART: Regular. ABDOMEN: Soft, nontender. ASSESSMENT AND PLAN: Pneumonia, respiratory insufficiency which is stable and improving at this time. Hypertension, stable. Rest of diagnosis stable. Leukocytosis, stable. TID: [id number] RECEIPT: [id number]
[2025-01-14] MEDS: AZITHROMYCIN 250 MG TABLET PO SCH (11:44)
[2025-01-15] VITALS (9 sets, daily range): BP systolic 115–138; BP diastolic 66–85; PULSE 68–76; RESP 16–19; TEMP 97.6–98; O2SAT 95–97
--- NOTE | 2025-01-15 04:15 | PN ---
SUBJECTIVE: The patient was admitted for assessment and treatment of dyspnea, found to have left lower lobe pneumonia, hypoxemia. She continued her treatment for type 2 diabetes. She is feeling significantly improved. No fever, chills, seizures. No chest pain, palpitations. No nausea or vomiting. OBJECTIVE: GENERAL: She is currently, awake, alert, oriented in person, time and place, not in distress. VITAL SIGNS: In the chart. HEENT: Normocephalic, atraumatic. LUNGS: Clear to auscultation. HEART: S1, S2 are distant. ABDOMEN: Soft, nontender. EXTREMITIES: No clubbing, cyanosis. LABORATORY DATA: WBC count 14.5, hemoglobin 11.2, platelets 309. Glucose 210. ASSESSMENT AND PLAN: * Respiratory failure. We are going to titrate oxygen to off. * Pneumonia. Continue current antibiotics, Zithromax. We will continue with Rocephin IV as well, first dose now. * Leukocytosis secondary to steroids as well as pneumonia. Continue to monitor. * Hypertension, controlled. Continue with Juluca for treatment of acquired immunodeficiency. Follow up in a.m. with labs. Plan to discharge if stable. DOS:01/14/2025 TID: [id number] RECEIPT: [id number] MTDRishi
--- NOTE | 2025-01-15 12:45 | NUR ---
DISCHARGE NOTE\ ID and IV band removed. Discharge instructions, medications, and follow ups reviewed. Paper copy provided to resident. Belongings packed and taken with patient. Spouse present. Wheeled down in wheelchair to private vehicle.
== END 2025-01-15 12:45 | disposition home or self-care (01) | DRG 193 ==
LOC: EDH 09:13 → EDHIP 14:02 → 4AH 01-10 00:30
PROVIDERS: ADMIT Internal Medicine; ATTEND Internal Medicine
DX: J18.9 Pneumonia, unspecified organism (principal); J96.91 Respiratory failure, unspecified with hypoxia; E87.20 Acidosis, unspecified; D84.9 Immunodeficiency, unspecified; J40 Bronchitis, not specified as acute or chronic; E11.9 Type 2 diabetes mellitus without complications; I10 Essential (primary) hypertension; T38.0X5A Adverse effect of glucocorticoids and synthetic analogues, initial encounter; Z90.49 Acquired absence of other specified parts of digestive tract; Z79.899 Other long term (current) drug therapy; Y92.89 Other specified places as the place of occurrence of the external cause
CPT/HCPCS: 36415; 36600; 71045; 71270; 80048; 80053; 82550; 82803; 82948; 83605; 83735; 83880; 84145; 84484; 85025; 85027; 85378; 87040; 87426; 87804; 93005; 94640; 94664; 99291; G0378; J0456; J0696; J1650; J1815; J2270; J2919; Q9967

== ENCOUNTER → 2025-08-23 | Outpatient (CLI) | payer BC ==
[~2025-08-23] MED LIST: BACL10TA PO; FAMO40TA7 PO; GABA300C PO; HYDR12.54 PO; IBUP-2077 PO; IOHEXOL-350 50ML VIAL IV ONE; JULUCA PO; LEVO100T12 PO; LOSA25TA41 PO; METF-444 PO; PRED20TA3 PO; ROSU10TA98 PO
--- NOTE | 2025-08-24 02:16 | HMCIMG ---
EXAM: CT Chest With Intravenous Contrast. CLINICAL HISTORY: Chronic obstructive pulmonary disease with acute exacerbation. TECHNIQUE: Axial computed tomography images of the chest with intravenous contrast. Dose reduction technique was used including one or more of the following: automated exposure control, adjustment of mA and kV according to patient size, and/or iterative reconstruction. Total exam DLP is 443. CONTRAST: With; 50 mL intravenous contrast. COMPARISON: None provided. FINDINGS: LUNGS: No pulmonary mass. No focal airspace consolidation. There is a 3 mm sized pleural based nodule in the right lower lobe involving the posterobasal segment, series 2, image 47/66. There is bibasilar dependent and streaky atelectasis. PLEURAL SPACES: No pleural effusion. No pneumothorax. HEART AND MEDIASTINUM: No cardiomegaly. No significant pericardial effusion. There are coronary arterial calcifications. LYMPH NODES: No lymphadenopathy. CHEST WALL AND UPPER ABDOMEN: There is a calcified gallbladder calculus measuring 5 mm visualized in the neck region. No gallbladder wall edema or pericholecystic fluid or fat stranding. The chest wall is unremarkable. BONES: No acute osseous abnormality. IMPRESSION: 1. No lung infiltrates, pleural effusion or consolidation. 2. 3 mm pleural-based right lower lobe pulmonary nodule. Recommend annual follow up by CT scan. 3. Cholelithiasis. /[place]
== END | disposition home or self-care (01) ==
LOC: RAH 11:09
PROVIDERS: ATTEND Internal Medicine
DX: J44.1 Chronic obstructive pulmonary disease with (acute) exacerbation (principal); R91.1 Solitary pulmonary nodule; K80.20 Calculus of gallbladder without cholecystitis without obstruction; J98.11 Atelectasis; I25.10 Atherosclerotic heart disease of native coronary artery without angina pectoris
CPT/HCPCS: 71260; Q9967

== ENCOUNTER → 2025-08-28 | Outpatient (CLI) | payer BC ==
[~2025-08-28] MED LIST changes: -IOHEXOL-350 50ML VIAL IV ONE
--- NOTE | 2025-08-28 18:32 | HMCSR ---
APPROVED REPORT EXAM: Two-dimensional and M-mode echocardiogram with Doppler and color Doppler. Study Details: Hx: COPD INDICATION ICD: R60.0 Localized edema 2D Dimensions RVDd 2.8 cm LVEF(%) 43.4 (>50%) LVED Vol(simp.) 75.3 mL IVSd 0.8 (0.7-1.1cm) FS(%) 21 % LVES Vol(simp.) 28.3 mL LVDd 4.0 (3.8-5.6cm) LA (2D) 3.4 (1.6-4.0cm) LVEF(%, simp.) 62 % PWd 0.8 (0.7-1.1cm) Ao Root(2D) 3.5 (2.0-3.7cm) LA ESV INDEX (BP) 22.41 mL/m2 LVDs 3.1 (2.5-4.0cm) LVOT diam 2.2 (1.8-2.4cm) M-Mode Dimensions EPSS 0.8 cm LA (MM) 3.7 (1.6-4.0cm) Ao Root(MM) 3.5 (2.0-3.7cm) Aortic Valve AoV Vmax 1.4 m/s Ao Peak GR 7.8 mmHg LVOT Vmax 1.0 m/s AoV VTI 0.2 m Ao Mean GR 5.1 mmHg LVOT VTI 0.17 m ARIANA (VMAX) 2.72 cm2 ARIANA (VTI) 2.7 cm2 Mitral Valve MV E Vmax 70.5 cm/s DECEL Time 255 ms MV A Vmax 84.8 cm/s P 1/2 T 54 ms E/A ratio 0.8 MVA (PHT) 4.1 cm2 TDI E/E' Medial 10.2 E/E' Lateral 6.4 Medial E' Peak V 6.91 cm/s Lateral E' Peak V 11.02 cm/s Pulmonary Valve PV Vmax 1.4 m/s PV VTI 0.26 m PV Mean GR 5.6 mmHg PV Peak GR 8.0 mmHg Tricuspid Valve TR Vmax 1.1 m/s RAP (EST) 3 mmHg RVSP 8.2 mmHg TR Peak GR 5.2 mmHg Left Ventricle The left ventricle is normal size. There is normal LV segmental wall motion. There is normal left ventricular wall thickness. LVEF is 60-65%. Indeterminate diastolic dysfunction. Right Ventricle The right ventricle is normal size. The right ventricular systolic function is normal. Atria The left atrium size is normal. The right atrium size is normal. Aortic Valve The aortic valve is normal in structure. No aortic regurgitation is present. There is no aortic valvular stenosis. Mitral Valve The mitral valve is normal in structure. There is no mitral valve regurgitation noted. There is no mitral valve stenosis. Tricuspid Valve The tricuspid valve is normal in structure. There is trace of tricuspid valve regurgitation noted. Pulmonic Valve The pulmonary valve is normal in structure. There is no pulmonic valvular regurgitation. Great Vessels The aortic root is normal in size. The IVC is normal in size and collapses >50% with inspiration. Pericardium There is trace of pericardial effusion seen anteriorly. No echo indications of pericardial tamponade. Other Information Quality : Technically diffcult study due to body habitus Conclusion LVEF is 60-65%. There is trace of pericardial effusion seen anteriorly. No echo indications of pericardial tamponade.
== END | disposition home or self-care (01) ==
LOC: RAH 14:53
PROVIDERS: ATTEND Internal Medicine
DX: R60.0 Localized edema (principal)
CPT/HCPCS: 93306